=== PATIENT | female | born 1935 | race Caucasian/White ===

== ENCOUNTER 2016-11-08 17:36 | Emergency (ER) | payer MEDICARE, BC ==
[2016-11-08 18:05] VITALS: BP 128/78
--- NOTE | 2016-11-08 18:33 | EDM.PDOC ---
ED HPI GENERAL MEDICAL PROBLEM - General Chief Complaint: General Stated Complaint: POSSIBLY DEHYDRATED Time Seen by Provider: 11/08/16 18:15 Source of Information: Reports: Patient History Limitations: Reports: No limitations - History of Present Illness INITIAL COMMENTS - FREE TEXT/NARRATIVE: Pt claims that she has not been feeling well for the past 3-4 days. She claims that she has not been able to eat since . She was treated with [facility]PAK for her bronchitis. She has not vomited but claims she does not have appetite. She claims she has not drunk any thing for the same period. Other than some Gatorade yesterday. No fever or chills. She claims she did pass one dark stool yesterday which was like pellets. Also she claims her cough and congestion has improved, but still coughs on and off.No tarry liquid stools. No abdominal pain. 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: , Other (see below) Other OB/BYN History: postirradiation ovarian failure; vaginal boil Musculoskeletal History: Reports: Other (see below) Other Musculoskeletal History: scoliosis Oncologic (Cancer) History: Reports: Basal cell carcinoma - Past Surgical History HEENT Surgical History: Reports: Cataract surgery GI Surgical History: Reports: Cholecystectomy, Colonoscopy, Hernia, abdominal, Polypectomy Female Surgical History: Reports: section Social & Family History - Family History Family Medical History: Noncontributory - Tobacco Use Smoking Status *Q: Never Smoker - Recreational Drug Use Recreational Drug Use: No ED ROS GENERAL - Review of Systems Review Of Systems: See Below Constitutional: Reports: weakness. Denies: fever, chills HEENT: Denies: Rhinitis, Sinus problem, Throat pain, Throat swelling Respiratory: Reports: Cough, Sputum. Denies: Shortness of Breath, Wheezing Cardiovascular: Reports: PND. Denies: Chest pain, Lightheadedness, Syncope GI/Abdominal: Denies: Anorexia, Nausea, Vomiting : Denies: discharge, dysuria Musculoskeletal: Denies: shoulder pain, joint pain, joint swelling Skin: Denies: pruritis, rash Neurological: Denies: Confusion, Dizziness, Headache, Seizure, Syncope ED EXAM, GENERAL - Physical Exam Exam: See Below Exam Limited By: No limitations General Appearance: alert, WD/WN, no apparent distress, other (Hydration is appropriate) Eye Exam: bilateral eye: EOMI, PERRL Ears: normal external exam, normal canal, hearing grossly normal, normal TMs Ear Exam: bilateral ear: auricle normal, canal normal, TM normal Nose: normal inspection, normal mucosa, no blood Throat/Mouth: Normal inspection, Normal lips, Normal teeth, Normal gums, Normal oropharynx, Normal voice, No airway compromise Neck: normal inspection, supple, non-tender, full range of motion Respiratory/Chest: no respiratory distress, lungs clear, normal breath sounds, no accessory muscle use, chest non-tender Cardiovascular: normal peripheral pulses, regular rate, rhythm, no edema, no gallop, no JVD, no murmur, no rub GI/Abdominal: normal bowel sounds, soft, non tender, no organomegaly, no distention, no abnormal bruit, no mass Extremities: normal inspection, normal range of motion, non-tender, normal capillary refill, no pedal edema Neurological: alert, oriented, CN II-XII intact, normal cognition, normal gait, normal reflexes, no motor/sensory deficits Skin Exam: Warm, Intact Course - Vital Signs Text/Narrative:: Pt's clinical exam is normal. Her hydration appears appropriate. Her CBC is 5.4 , hemoglobin 14.8. CMP is normal. Her BUN 18 and creat of 0.9. Pt reassured that she is getting over bronchitis, she probably is tired due to recuperation form recent illness. generally can last for 2 wks.Advised rest and hydration. IF symptoms worsen return to emergency room. Last Recorded V/S: Last Vital Signs Temp 97.6 F 11/08/16 18:43 Pulse 97 11/08/16 18:43 Resp 16 11/08/16 18:43 BP 128/78 11/08/16 18:43 Pulse Ox 99 11/08/16 18:43 - Orders/Labs/Meds Orders: Active Orders 24 hr Category Date Time Status CULTURE URINE [RM] Stat Lab 11/08/16 19:07 Uncollected Labs: Laboratory Tests 11/08/16 11/08/16 Range/Units 18:30 18:30 WBC 5.2 (4.0-11.0) K/uL RBC 4.72 (3.80-5.80) M/uL Hgb 14.8 (11.5-16.5) g/dL Hct 42.4 (37.0-47.0) % MCV 90 (76-96) fL MCH 31.4 (27.0-32.0) pg MCHC 34.9 (31.0-35.0) g/dL RDW 13.2 (11.0-16.0) % Plt Count 242 (150-500) K/uL MPV 11.3 H (6.0-10.0) fL Neut % (Auto) 51.6 (45.0-70.0) % Lymph % (Auto) 37.6 (20.0-40.0) % Bland % (Auto) 10.0 (3.0-10.0) % Eos % (Auto) 0.6 L (1.0-5.0) % Baso % (Auto) 0.2 (0.0-0.5) % Neut # (Auto) 2.68 (2.00-7.50) K/uL Lymph # (Auto) 1.95 (1.50-4.00) K/uL Bland # (Auto) 0.52 (0.20-0.80) K/uL Eos # (Auto) 0.03 L (0.04-0.40) K/uL Baso # (Auto) 0.01 L (0.02-0.10) K/uL Sodium 136 (136-145) mmol/L Potassium 4.0 (3.5-5.1) mmol/L Chloride 99 (98-107) mmol/L Carbon Dioxide 29.2 (21.0-32.0) mmol/L Anion Gap 11.8 (5.0-15.0) mmol/L BUN 18 (8-26) mg/dL Creatinine 0.97 (0.55-1.02) mg/dL Est Cr Clr Drug Dosing TNP Estimated GFR (MDRD) 55 L (>60) MLS/MIN BUN/Creatinine Ratio 18.6 (6-25) Glucose 113 H (74-100) mg/dL Calcium 9.4 (8.5-10.1) mg/dL Total Bilirubin 0.7 D (0.0-1.0) mg/dL AST 26 (15-37) U/L ALT 28 (12-78) U/L Alkaline Phosphatase 58 (46-116) U/L Total Protein 7.3 (6.4-8.2) g/dL Albumin 3.5 (3.4-5.0) g/dL Globulin 3.8 (2.2-4.2) g/dL Albumin/Globulin Ratio 0.9 (0.8-2.0) Departure - Departure Time of Disposition: 19:20 Disposition: Home, Self-Care 01 Condition: fair Clinical Impression: Weakness Forms: ED Department Discharge Additional Instructions: Pt's clinical exam is normal. Her hydration appears appropriate. Her CBC is 5.4 , hemoglobin 14.8. CMP is normal. Her BUN 18 and creat of 0.9. Pt reassured that she is getting over bronchitis, she probably is tired due to recuperation form recent illness. generally can last for 2 wks.Advised rest and hydration. IF symptoms worsen return to emergency room. - Problem List & Annotations (1) Weakness SNOMED Code(s): 60211061 Code(s): R53.1 - WEAKNESS Status: Acute Current Visit: Yes - Problem List Review Problem List Initiated/Reviewed/Updated: Yes - My Orders Last 24 Hours: My Active Orders 11/08/16 19:07 CULTURE URINE [RM] Stat - Assessment/Plan Last 24 Hours: My Active Orders 11/08/16 19:07 CULTURE URINE [RM] Stat Assessment:: Weakness- recuperation from recent illness Plan: Pt's clinical exam is normal. Her hydration appears appropriate. Her CBC is 5.4 , hemoglobin 14.8. CMP is normal. Her BUN 18 and creat of 0.9. Pt reassured that she is getting over bronchitis, she probably is tired due to recuperation form recent illness. generally can last for 2 wks.Advised rest and hydration. IF symptoms worsen return to emergency room.
== END 2016-11-08 19:30 | disposition home or self-care (01) ==
LOC: LB.ED 17:36
DX: R53.1 Weakness (principal); I10 Essential (primary) hypertension; K21.9 Gastro-esophageal reflux disease without esophagitis; Z98.49 Cataract extraction status, unspecified eye; Z90.49 Acquired absence of other specified parts of digestive tract; Z79.899 Other long term (current) drug therapy
CPT/HCPCS: 36415; 80053; 85025; 99282; 99283